=== PATIENT | female | born 1965 | race African-American/Black ===

== ENCOUNTER 2021-09-18 15:55 | Inpatient (IN) | payer OTHER, SELFPAY ==
--- NOTE | 2021-09-18 17:04 | P.EN_ITS ---
Event Note Date of Service: 09/18/21 Event Note: Pt transferred from [facility]. Reports she has a bladder prolapse, no UTI sx and uses antibiotics often for sx mgt. Per [facility], [facility] [address] [phone], last antibiotics Rx 07/23/22, October 2020 and in [facility] ER-Keflex 09/10-. As a result none were re- written at this time. Pt tells team she will need a consult for the prolapse. Nakul held as pt reports an increase in GI distress when using these. Per [facility] current regime includes...clonidine 0.1 mg tid, trazodone 50 mg hs prn, Chlorthalidone 12.5 mg a.m. Omeprazole 20 mg daily, Lorazepam 0.5 mg tid (7 day supply 07/23), Abilify 10 mg daily, Miralax qd prn.
--- NOTE | 2021-09-18 17:04 | PM.EVENT ---
Event Note Date of Service: 09/18/21 Event Note: Pt transferred from [facility]. Reports she has a bladder prolapse, no UTI sx and uses antibiotics often for sx mgt. Per [facility], [facility] [address] [phone], last antibiotics Rx 07/23/22, October 2020 and in [facility] ER-Keflex 09/10-. As a result none were re-written at this time. Pt tells team she will need a consult for the prolapse. Nakul held as pt reports an increase in GI distress when using these. Per [facility] current regime includes...clonidine 0.1 mg tid, trazodone 50 mg hs prn, Chlorthalidone 12.5 mg a.m. Omeprazole 20 mg daily, Lorazepam 0.5 mg tid (7 day supply 07/23), Abilify 10 mg daily, Miralax qd prn.
[2021-09-18] MEDS: polyethylene glycoL 3350 17 GM POWD.PACK PO (18:06)
[2021-09-18 19:30] VITALS: BP 143/68; PULSE 85
[2021-09-18] MEDS: Baclofen 10 MG TABLET PO (19:52)
[2021-09-18] MEDS: Gabapentin 300 MG CAPSULE PO (19:52)
[2021-09-18] MEDS: cloNIDine HCL 0.1 MG TABLET PO (19:52)
[2021-09-18] MEDS: Acetaminophen 325 MG TABLET 650 MG PO (19:55)
[2021-09-18] MEDS: LORazepam 0.5 MG TABLET PO (19:56)
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
[2021-09-18] MEDS: Nicotine Polacrilex 2 MG GUM 4 MG BUCCAL (21:37)
[2021-09-19] MEDS: traZODone HCL 50 MG TABLET PO ×2 (01:12→21:54)
[2021-09-19] MEDS: hydrOXYzine HCL 25 MG TABLET PO (04:42)
[2021-09-19] MEDS: Ondansetron ODT 4 MG TAB.RAPDIS TRANSLINGU (04:58)
[2021-09-19] MEDS: Acetaminophen 325 MG TABLET 650 MG PO (05:24)
[2021-09-19 06:00] VITALS: BP 109/78; PULSE 78; TEMP 36.9; O2SAT 99
[2021-09-19] MEDS: hydroCHLOROthiazide 12.5 MG TABLET PO (08:48)
[2021-09-19] MEDS: Baclofen 10 MG TABLET PO ×2 (08:48→20:32)
[2021-09-19] MEDS: cloNIDine HCL 0.1 MG TABLET PO ×3 (08:48→20:33)
[2021-09-19] MEDS: ARIPiprazole 10 MG TABLET PO (08:49)
[2021-09-19] MEDS: Gabapentin 300 MG CAPSULE PO ×3 (08:49→20:32)
[2021-09-19] MEDS: Magnesium Hydrox/Alum Hydrox 30 ML ORAL.SUSP PO ×2 (08:53→16:07)
[2021-09-19] MEDS: Nicotine 21 MG PATCH.TD24 TRANSDERMA (09:13)
[2021-09-19] MEDS: Nicotine Polacrilex 2 MG GUM 4 MG BUCCAL ×4 (09:33→23:26)
[2021-09-19] MEDS: Omeprazole 20 MG CAPSULE.DR PO ×2 (09:33→15:40)
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
[2021-09-19] MEDS: LORazepam 0.5 MG TABLET PO ×2 (12:20→21:54)
--- NOTE | 2021-09-19 14:23 | PC.NURSE ---
pt came to the nurses station c/o feeling like she was having a stroke. no facial droop but lower jaw did appear off center. she appeared anxious. bp taken 115/66 86 pulse and 100 % room air. as i spoke with pt her speech was clear. seemed to relax and did accept ativan prn. pt reported no pain and relaxed as 1:1 progressed and she stated she felt better. did not feel the same way. elaine aware.
--- NOTE | 2021-09-19 14:37 | HO.ADDICT_ITS ---
History of Present Illness Date of Service: 09/19/2021 Chief Complaint: Unspec Depressive D/O Opioid Use D/O Stimulant Use Reason for Consult: opioid use disorder, requesting suboxone Requesting physician: Mirta Carrera Discussed with referring provider: Yes Sources of Information: patient interviewed and chart reviewed HPI Narrative: Patient is a 55 year old female currently psychiatrically admitted with worsening depression and suicidal ideation. Long history of opioid and cocaine use. Patient had been at [facility] ED awaiting admission since 09/10, and came to [facility] yesterday. Notes and labs from [facility] reviewed. UDS +opiates and cocaine Patient seen in room 508. Awake, alert, pleasant and engaged in interview. Patient reporting withdrawal sx including, body aches, loose stools, nausea, chills. She reports she was using approx 2 bundles of heroin QD IN. Last use was about 10 days ago. She reports that she has only been on MOUD when at [facility] and has not continued once discharged She reports history of 2 overdoses requiring narcan denies any family history of addiction Reports her only periods in recovery have been when she has been hospitalized or incarcerated Review of Systems Constitutional: Reports as per HPI Diagnostics Vital Signs (24Hr): Vital Signs - 24 hr 09/18/21 19:30 09/19/21 06:00 Temperature 98.4 F Pulse Rate 85 78 Blood Pressure 143/68 H 109/78 Pulse Oximetry 99 Mental Status Exam Mental Status Exam Patient Appearance: Appropriate Level of Consciousness: Awake and Appropriate Patient Behavior: Appropriate and Restless Mood Description: Calm and Appropriate Affect Description: Appropriate Thought Process: Goal Oriented Thought Content: positive for Goal Oriented Judgement: Fair Medications Medications Current Medications Acetaminophen (Acetaminophen 325 Mg Tablet) 650 mg PO Q6H PRN PRN Reason: Headache/Pain Mild Scale (1-3) Last Admin: 09/19/21 05:24 Dose: 650 mg Documented by: Al Hydroxide/Mg Hydroxide (Magnesium Hydrox/Alum Hydrox 30 Ml Oral.Susp) 30 ml PO Q6H PRN PRN Reason: Heartburn/Nausea Last Admin: 09/19/21 08:53 Dose: 30 ml Documented by: Aripiprazole (Aripiprazole 10 Mg Tablet) 10 mg PO DAILY [facility] Last Admin: 09/19/21 08:49 Dose: 10 mg Documented by: Baclofen (Baclofen 10 Mg Tablet) 10 mg PO BID [facility] Last Admin: 09/19/21 08:48 Dose: 10 mg Documented by: Buprenorphine HCl (Buprenorphine Hcl 2 Mg Tab.Subl) 2 mg SUBLINGUAL Q2H PRN PRN Reason: Opiate Withdrawal Clonidine HCl (Clonidine Hcl 0.1 Mg Tablet) 0.1 mg PO TID [facility]; Protocol Last Admin: 09/19/21 14:20 Dose: 0.1 mg Documented by: Gabapentin (Gabapentin 300 Mg Capsule) 300 mg PO TID [facility] Last Admin: 09/19/21 14:20 Dose: 300 mg Documented by: Hydrochlorothiazide (Hydrochlorothiazide 12.5 Mg Tablet) 12.5 mg PO DAILY [facility] Last Admin: 09/19/21 08:48 Dose: 12.5 mg Documented by: Hydrocortisone (Hydrocortisone 1 % Cream 28.35 Gm Tube) 1 appl TOPICAL DAILY PRN; Protocol PRN Reason: dermatoses Hydroxyzine HCl (Hydroxyzine Hcl 25 Mg Tablet) 25 mg PO BEDTIME PRN PRN Reason: Anxiety Last Admin: 09/19/21 04:42 Dose: 25 mg Documented by: Lorazepam (Lorazepam 0.5 Mg Tablet) 0.5 mg PO Q8H PRN PRN Reason: Anxiety Last Admin: 09/19/21 12:20 Dose: 0.5 mg Documented by: Magnesium Hydroxide (Milk Of Magnesia 30 Ml Oral.Susp) 30 ml PO DAILY PRN PRN Reason: Constipation Mupirocin (Mupirocin 2 % Oint 22 Gm Tube) 1 appl TOPICAL BID [facility]; Protocol Last Admin: 09/19/21 08:49 Dose: Not Given Documented by: Nicotine (Nicotine 21 Mg Patch.Td24) 21 mg TRANSDERMA DAILY [facility] Last Admin: 09/19/21 09:13 Dose: 21 mg Documented by: Nicotine Polacrilex (Nicotine Polacrilex 2 Mg Gum) 4 mg BUCCAL Q1H PRN PRN Reason: Nicotine Cravings Last Admin: 09/19/21 09:33 Dose: 4 mg Documented by: Omeprazole (Omeprazole 20 Mg Capsule.Dr) 20 mg PO BID@0630,1630 [facility] Ondansetron HCl (Ondansetron Odt 4 Mg Tab.Rapdis) 4 mg TRANSLINGU Q6H PRN PRN Reason: Vomiting Last Admin: 09/19/21 04:58 Dose: 4 mg Documented by: Polyethylene Glycol (Polyethylene Glycol 3350 17 Gm Powd.Pack) 17 gm PO DAILY PRN PRN Reason: Constipation Last Admin: 09/18/21 18:06 Dose: 17 gm Documented by: Trazodone HCl (Trazodone Hcl 50 Mg Tablet) 50 mg PO BEDTIME PRN PRN Reason: Insomnia Last Admin: 09/19/21 01:12 Dose: 50 mg Documented by: Allergies Allergies Allergy/AdvReac Type Severity Reaction Status Date / Time No Known Allergies Allergy Verified 09/18/21 16:27 Assessment & Plan Assessment & Plan (1) Opioid use disorder: Status: Acute Code(s): F11.90 - Opioid use, unspecified, uncomplicated Assessment and Plan: * will start buprenorphine mono product per patient request --2mg Q2 hours for withdrawal max of 4 doses (total of 8mg) * daily dosing for tomorrow depends on today's soing * please tigher this aligner typewriter with any questions over the weekend I spent _35 minutes with the patient and/or on the patient floor today, greater than?50% of which was spent counseling/coordinating care. PMFSH Social History Social History Household Members: None Housing: Homeless Do you presently have visiting nurse or other home services: No Patient Tobacco Use Status: Current everyday Tobacco user Tobacco use type: Cigarette Cigarette Packs Per Day: 2 Cigarettes Per Day: 40.0 Years Smoked: 10+ Smoked in Last 30 Days: Yes Patient Interested in Nicotine Replacement: Yes Patient Given Instructions on How to Stop Smoking: Yes Date Education Initiated: 09/18/21 Second Hand Smoke Exposure: Yes Use of substances other than those prescribed or required for medical reasons: No Substance Use Type: Crack/Cocaine and Opiates Substance Use Frequency: Socially Last Used Substance: Days (ago) Currently Displaying Signs/Symptoms of Drug Intoxication Withdrawal: Yes Any prior treatment program specific to substance use: No Have you been hit, kicked, punched, or otherwise hurt by someone within the past year? If so, by whom?: No Do you feel safe in your current relationship?: No Current Relationship Is there a partner from a previous relationship who is making you feel unsafe now?: No Are you made to feel afraid or neglected: No Advance Directives: No Advance Directives Information Provided: No Do you have thoughts of harming others: None Do you have a plan to hurt others: No Plan Recently lost weight without trying: No How much weight loss: Not applicable Eating poorly because of decreased appetite: No Nutrition screen score: 0 Nutrition Risks: No Nutritional Risk Patient : No : No Poor oral hygiene: No service: No Sexual orientation: Did not discuss
--- NOTE | 2021-09-19 18:41 | P.CNHOSGPS_ITS ---
History of Present Illness Data of Consult Service Date: 09/19/21 Requesting physician: Mirta Carrera Primary Care Provider: Unknown Physician HPI Reason for consult: ? bladder prolapse 55-year-old female poor historian , history taken from [facility] documents, patient and patient staff- Patient was sent from [facility] because of suicidal ideation. Patient has history of polysubstance abuse she still uses cocaine. Two packs cigarette smoking day history. She also has history of hysterectomy in 2007 after that she also has urethral diverticulum and cystocele. she says that she feels like her bladder prolapse then try to pressure the urine, denies any burning or pain or nausea vomiting or fever. denies any chest pain or shortness of breath or cough or phlegm or new weakness or numbness. Past medical history: History of hysterectomy, GERD,anemia, history of substance abuse, depression, hypertension, EtOH abuse, vesicovaginal fistula, cystocele, history of left lower extremity swelling. chart review also shows that she probably has opioid withdrawal on Suboxone currently. currently does not seem to be in significant withdrawals. Review of Systems Verdana 4l Review of Systems: Verdana 4d as above. Verdana 4d Yes Verdana 4d all other systems are reviewed and are negative Verdana 4l ENT: Verdana 4d Reports Normal hearing present Verdana 4l Neurologic: Verdana 4d Reports Normal hearing present [facility] Pertinent family history: Denies any history of hypertension, GERD in family. Social History Household Members: None Housing: Homeless Do you presently have visiting nurse or other home services: No Patient Tobacco Use Status: Current everyday Tobacco user Tobacco use type: Cigarette Cigarette Packs Per Day: 2 Cigarettes Per Day: 40.0 Years Smoked: 10+ Smoked in Last 30 Days: Yes Patient Interested in Nicotine Replacement: Yes Patient Given Instructions on How to Stop Smoking: Yes Date Education Initiated: 09/18/21 Second Hand Smoke Exposure: Yes Use of substances other than those prescribed or required for medical reasons: No Substance Use Type: Crack/Cocaine and Opiates Substance Use Frequency: Socially Last Used Substance: Days (ago) Currently Displaying Signs/Symptoms of Drug Intoxication Withdrawal: No Any prior treatment program specific to substance use: No Have you been hit, kicked, punched, or otherwise hurt by someone within the past year? If so, by whom?: No Do you feel safe in your current relationship?: No Current Relationship Is there a partner from a previous relationship who is making you feel unsafe now?: No Are you made to feel afraid or neglected: No Advance Directives: No Advance Directives Information Provided: No Do you have thoughts of harming others: None Do you have a plan to hurt others: No Plan Recently lost weight without trying: No How much weight loss: Not applicable Eating poorly because of decreased appetite: No Nutrition screen score: 0 Nutrition Risks: No Nutritional Risk Patient : No : No Poor oral hygiene: No service: No Sexual orientation: Did not discuss Meds Allergies Allergy/AdvReac Type Severity Reaction Status Date / Time No Known Allergies Allergy Verified 09/18/21 16:27 Active Medications: Current Medications Acetaminophen (Acetaminophen 325 Mg Tablet) 650 mg PO Q6H PRN PRN Reason: Headache/Pain Mild Scale (1-3) Last Admin: 09/19/21 05:24 Dose: 650 mg Documented by: Al Hydroxide/Mg Hydroxide (Magnesium Hydrox/Alum Hydrox 30 Ml Oral.Susp) 30 ml PO Q6H PRN PRN Reason: Heartburn/Nausea Last Admin: 09/19/21 16:07 Dose: 30 ml Documented by: Aripiprazole (Aripiprazole 10 Mg Tablet) 10 mg PO DAILY [facility] Last Admin: 09/19/21 08:49 Dose: 10 mg Documented by: Baclofen (Baclofen 10 Mg Tablet) 10 mg PO BID [facility] Last Admin: 09/19/21 08:48 Dose: 10 mg Documented by: Buprenorphine HCl (Buprenorphine Hcl 2 Mg Tab.Subl) 2 mg SUBLINGUAL Q2H PRN PRN Reason: Opiate Withdrawal Clonidine HCl (Clonidine Hcl 0.1 Mg Tablet) 0.1 mg PO TID [facility]; Protocol Last Admin: 09/19/21 14:20 Dose: 0.1 mg Documented by: Gabapentin (Gabapentin 300 Mg Capsule) 300 mg PO TID [facility] Last Admin: 09/19/21 14:20 Dose: 300 mg Documented by: Hydrochlorothiazide (Hydrochlorothiazide 12.5 Mg Tablet) 12.5 mg PO DAILY [facility] Last Admin: 09/19/21 08:48 Dose: 12.5 mg Documented by: Hydrocortisone (Hydrocortisone 1 % Cream 28.35 Gm Tube) 1 appl TOPICAL DAILY PRN; Protocol PRN Reason: dermatoses Hydroxyzine HCl (Hydroxyzine Hcl 25 Mg Tablet) 25 mg PO BEDTIME PRN PRN Reason: Anxiety Last Admin: 09/19/21 04:42 Dose: 25 mg Documented by: Lorazepam (Lorazepam 0.5 Mg Tablet) 0.5 mg PO Q8H PRN PRN Reason: Anxiety Last Admin: 09/19/21 12:20 Dose: 0.5 mg Documented by: Magnesium Hydroxide (Milk Of Magnesia 30 Ml Oral.Susp) 30 ml PO DAILY PRN PRN Reason: Constipation Mupirocin (Mupirocin 2 % Oint 22 Gm Tube) 1 appl TOPICAL BID [facility]; Protocol Last Admin: 09/19/21 08:49 Dose: Not Given Documented by: Nicotine (Nicotine 21 Mg Patch.Td24) 21 mg TRANSDERMA DAILY [facility] Last Admin: 09/19/21 09:13 Dose: 21 mg Documented by: Nicotine Polacrilex (Nicotine Polacrilex 2 Mg Gum) 4 mg BUCCAL Q1H PRN PRN Reason: Nicotine Cravings Last Admin: 09/19/21 16:07 Dose: 4 mg Documented by: Omeprazole (Omeprazole 20 Mg Capsule.Dr) 20 mg PO BID@0630,1630 [facility] Last Admin: 09/19/21 15:40 Dose: 20 mg Documented by: Ondansetron HCl (Ondansetron Odt 4 Mg Tab.Rapdis) 4 mg TRANSLINGU Q6H PRN PRN Reason: Vomiting Last Admin: 09/19/21 04:58 Dose: 4 mg Documented by: Polyethylene Glycol (Polyethylene Glycol 3350 17 Gm Powd.Pack) 17 gm PO DAILY PRN PRN Reason: Constipation Last Admin: 09/18/21 18:06 Dose: 17 gm Documented by: Trazodone HCl (Trazodone Hcl 50 Mg Tablet) 50 mg PO BEDTIME PRN PRN Reason: Insomnia Last Admin: 09/19/21 01:12 Dose: 50 mg Documented by: Home Medications Medication Instructions Recorded Confirmed Last Taken Type amoxicillin 500 1 cap PO BID 09/18/21 09/18/21 Unknown History mg capsule aripiprazole 10 1 tab PO DAILY 09/18/21 09/18/21 Unknown History mg tablet baclofen 10 mg 1 tab PO BID 09/18/21 09/18/21 Unknown History tablet chlorthalidone 25 0.5 tab PO QAM 09/18/21 09/18/21 Unknown History mg tablet clonidine HCl 0.1 1 tab PO TID 09/18/21 09/18/21 Unknown History mg tablet gabapentin 300 mg 1 cap PO TID 09/18/21 09/18/21 Unknown History capsule gabapentin 300 mg 1 cap PO TID 09/18/21 09/18/21 Unknown History capsule hydrocortisone appl TOPICAL 09/18/21 09/18/21 Unknown History 2.5 % topical cream lorazepam 0.5 mg 1 tab PO TID PRN 09/18/21 09/18/21 Unknown History tablet lorazepam 0.5 mg 1 tab PO TID PRN 09/18/21 09/18/21 Unknown History tablet methylprednisolon tab PO 09/18/21 09/18/21 Unknown History e 4 mg tablets in a dose pack methylprednisolon tab PO 09/18/21 09/18/21 Unknown History e 4 mg tablets in a dose pack mupirocin 2 % 1 applic TOPICAL 09/18/21 09/18/21 Unknown History topical ointment BID-TID ondansetron HCl 4 1 tab PO Q8H PRN 09/18/21 09/18/21 Unknown History mg tablet ondansetron HCl 4 1 tab PO Q8H PRN 09/18/21 09/18/21 Unknown History mg tablet pantoprazole 40 1 tab PO DAILY 09/18/21 09/18/21 Unknown History mg tablet,delayed release polyethylene g PO 09/18/21 09/18/21 Unknown History glycol 3350 17 gram/dose oral powder (Gavilax) sulfamethoxazole 1 tab PO BID 09/18/21 09/18/21 Unknown History 800 mg-trimethoprim 160 mg tablet sulfamethoxazole 1 tab PO BID 09/18/21 09/18/21 Unknown History 800 mg-trimethoprim 160 mg tablet trazodone 50 mg 1 tab PO BEDTIME 09/18/21 09/18/21 Unknown History tablet trazodone 50 mg 1 tab PO BEDTIME 09/18/21 09/18/21 Unknown History tablet trazodone 50 mg 1 tab PO BEDTIME 09/18/21 09/18/21 Unknown History tablet trazodone 50 mg 1 tab PO BEDTIME 09/18/21 09/18/21 Unknown History tablet trazodone 50 mg 1 tab PO BEDTIME 09/18/21 09/18/21 Unknown History tablet trazodone 50 mg 1 tab PO BEDTIME 09/18/21 09/18/21 Unknown History tablet trazodone 50 mg 1 tab PO BEDTIME 09/18/21 09/18/21 Unknown History tablet trazodone 50 mg 1 tab PO BEDTIME 09/18/21 09/18/21 Unknown History tablet Assessment and Plan (1) Opioid use disorder: Status: Acute (2) HTN (hypertension): Status: Acute Plan 55-year-old female with multiple comorbidities including hypertension- admitted to [facility] for suicidal ideation medical consult was called due to new transfer, and evaluation bladder prolapse . patient was seen between between 4-4:30 pm in afternoon. 1. hypertension :continue hydrochlorothiazide 2. history of hysterectomy, question of bladder prolapse externally does not show any sign of prolapse does not seem to be DIS comfortable either consider clinical provider trainer consult. 3. anemia: [facility] labs recently hemoglobin is 12.2 seems stable. 4. depression/SI: continue medications and management as per psych. Please check CBC BMP just for baseline. 5. history of cocaine and substance abuse: seen by records management specialist seems like patient withdrawing and is on Suboxone currently seems asymptomatic. Continue to monitor. Thank you for letting at participate in the patient care ,please call us for any questions. Physical Exam Vital Signs: Last Vital Signs Temp 98.4 F 09/19/21 06:00 Pulse 78 09/19/21 06:00 BP 109/78 09/19/21 06:00 Pulse Ox 99 09/19/21 06:00 Physical exam: Appearance: Alert.? Oriented X3.? not in distress.? Eyes: Pupils equal, round and reactive to light.? Sclera nonicteric.? ENT: Pharynx normal.? Moist mucous membranes. cvs: rrr, [id number] , no murmur res: clear to auscultation ,no rhonchii or wheezing abd: no rebound or guarding ,nt, bs present. : Exam was done with staff present- externally does not show any protrusion o f bladder or any sign of any erythema or discharge. ext pulses present , no cyanosis ,Gait well balanced well coordinated. neuro: axo3 , nonfocal. Eyes Pupils: Equal, round and reactive pupils present Neuro Cranial nerves: Yes CN's II-XII intact bilaterally, Yes Facial sensation intact/muscles of mastication intact, Yes Intact sense of smell present, Yes Equal, round and reactive pupils present, Yes Normal accommodation reflex present, Yes Bilaterally intact EOM present, Yes Nystagmus not present, Yes Normal facial strength present, Yes Midline tongue present, Yes Normal gag reflex present, Yes Symmetric palate elevation present, Yes Normal hearing present, Yes Ability to bilaterally rotate head present and Yes Ability to bilaterally elevate shoulders present
[2021-09-19] MEDS: Buprenorphine HCL 2 MG TAB.SUBL SUBLINGUAL ×2 (19:02→21:54)
[2021-09-19 19:25] VITALS: BP 121/59; PULSE 79; RESP 8; TEMP 36.6; O2SAT 100
[2021-09-19 19:51] LABS: MANUAL DIFF FLAG NO
[2021-09-19 19:57] LABS: Basophils Percent Auto 0.8 % (0-2); Eosinophils Absolute Auto 0.1 X10*3/uL (0.0-0.4); Eosinophils Percent Auto 2.2 % (0-4); Hemoglobin 12.2 g/dl (12.0-16.0); Imm Gran Abs Auto 0.02 X10*3/uL (0.00-0.03); Imm Gran Pct Auto 0.4 % (0.0-0.4); Lymphocytes Absolute Auto 2.2 X10*3/uL (1.2-4.9); Lymphocytes Percent Auto 44.1 % (20-40); Mean Corpuscular Hemoglobin 29.7 pg (27.0-33.0); Mean Platelet Volume 10.1 fL (9.4-12.3); Monocytes Absolute Auto 0.3 X10*3/uL (0.1-1.2); Monocytes Percent Auto 6.8 % (2-11); Neutrophils Absolute Auto 2.3 x10*3/uL (2.0-8.3); Neutrophils Percent Auto 45.7 % (45-73); Platelet Count 329 X10*3/uL (160-400); Red Blood Count 4.11 X10*6/uL (4.20-5.50); Red Cell Distribution Width 12.6 % (11.0-16.0)
[2021-09-19 20:15] LABS: Anion Gap 14 (12-20); Blood Urea Nitrogen 14 mg/dL (9-16); Calcium 10.1 mg/dL (8.4-10.2); Carbon Dioxide 36 mmol/L (22-29); Chloride 90 mmol/L (96-108); Estimated Glomerular Filt Rate > 60; Glucose Random 92 mg/dL (60-115); Potassium 4.6 mmol/L (3.3-5.1); Sodium 135 mmol/L (135-145)
[2021-09-19] MEDS: Hydrocortisone 1 % Cream 28.35 GM TUBE 1 APPL TOPICAL (21:50)
[2021-09-19] MEDS: Mupirocin 2 % Oint 22 GM TUBE 1 APPL TOPICAL (21:56)
[2021-09-20] MEDS: LORazepam 0.5 MG TABLET PO (03:34)
[2021-09-20] MEDS: Buprenorphine HCL 2 MG TAB.SUBL SUBLINGUAL ×2 (03:35→09:28)
[2021-09-20] MEDS: Nicotine Polacrilex 2 MG GUM 4 MG BUCCAL ×3 (04:11→19:31)
[2021-09-20 06:00] VITALS: BP 111/64; PULSE 71; RESP 18; TEMP 35.8; O2SAT 98
[2021-09-20] MEDS: Omeprazole 20 MG CAPSULE.DR PO ×2 (06:22→16:23)
[2021-09-20 07:49] LABS: Estimated Average Glucose 120 mg/dL; Hemoglobin A1c % 5.8 %
[2021-09-20 08:08] LABS: Cholesterol 155 mg/dL; HDL Cholesterol 52 mg/dL; LDL Cholesterol Calculated 90 mg/dl; Triglycerides 65 mg/dL
[2021-09-20 08:29] LABS: Thyroid Stimulating Hormone 2.73 uIU/mL (0.32-4.0)
[2021-09-20 08:45] VITALS: BP 160/71; PULSE 84
[2021-09-20] MEDS: Gabapentin 300 MG CAPSULE PO ×3 (09:05→21:22)
[2021-09-20] MEDS: ARIPiprazole 10 MG TABLET PO (09:05)
[2021-09-20] MEDS: Baclofen 10 MG TABLET PO ×2 (09:05→21:22)
[2021-09-20] MEDS: hydroCHLOROthiazide 12.5 MG TABLET PO (09:05)
[2021-09-20] MEDS: cloNIDine HCL 0.1 MG TABLET PO ×3 (09:05→21:22)
[2021-09-20] MEDS: Mupirocin 2 % Oint 22 GM TUBE 1 APPL TOPICAL (09:07)
[2021-09-20] MEDS: Nicotine 21 MG PATCH.TD24 TRANSDERMA (09:15)
--- NOTE | 2021-09-20 11:52 | MHC.RECOVSUP ---
Recovery Support note: This writer editor met with patient to discuss buprenorphine dosing and withdrawal symptoms. Patient was attending group when this writer editor entered the unit. Patient reports that the buprenorphine has been helpful. Patient reports previously experiencing withdrawal symptoms including nausea and body aches however patient reports that after she receives the medication, she does not have any withdrawal symptoms. Discussed case with Char Rodriguez NP.
[2021-09-20 18:00] VITALS: BP 155/65; PULSE 89; RESP 16; TEMP 36.6
[2021-09-20] MEDS: Buprenorphine/Naloxone 4/1 mg FILM 1 FILM SUBLINGUAL (18:33)
[2021-09-20] MEDS: Acetaminophen 325 MG TABLET 650 MG PO (19:31)
--- NOTE | 2021-09-20 19:55 | P.PNPSI_ITS ---
Subjective Subjective Date of Service: 09/20/21 Reason For Visit: Unspec Depressive D/O Opioid Use D/O Stimulant Use Interim History: 55 yo female, with a reported history of schizoaffective disorder, bipolar type and PTSD, seen in transfer from [facility]. Pt reports SI with plans to overdose, get hit by a vehicle or jump [place] [address] [place] in [place], [place]. Pt reports on 07/04 her apartment was taken by the court and she has been homeless. As a result she reports relapse on heroin, crack, daily use and feeling increased depression, hopelessness. Today she reports her knee is swollen and hurts. She has chronic knee pain and swelling and uses a brace. She says no one can bring it and also I am homeless and I don't know where it is now . Mental Status Exam Mental Status Exam Narrative: Mental Status Exam Patient Appearance: desheveled Patient Orientation: Person, Place, Time and Situation Level of Consciousness: Alert Patient Behavior: Talkative, irritable, easily frustrated Mood Description: Depressed Affect Description: Flat Patient Cognition Impaired: No Ability to Follow Directions: Good Speech Pattern: Spontaneous Speech Memory Description: Episodic Impaired Hallucinations: Auditory Delusions: Paranoid Ideation Perceptual Disturbances: Depersonalization and Derealization Thought Process: Rumination Thought Content: positive for Suicidal Ideation Depressive Symptoms: Increased Anxiety, Insomnia, Difficulty Sleeping, Changes in Appetite, Feelings of Worthlessness, Hopelessness, Unhappiness, Thoughts of /Suicide and Low Self Esteem Judgement: Fair Level of Consciousness: Alert Patient Behavior: Talkative, Passive and Good Eye Contact Mood Description: Depressed Affect Description: Flat Patient Cognition Impaired: No Ability to Follow Directions: Good Speech Pattern: Spontaneous Speech Memory Description: Episodic Impaired Diagnostics Vital Signs (24Hr): Vital Signs - 24 hr 09/20/21 06:00 09/20/21 08:45 Temperature 96.5 F L Pulse Rate 71 84 Respiratory Rate 18 Blood Pressure 111/64 160/71 H Pulse Oximetry 98 Labs Results: 09/19/21 19:28 09/19/21 19:28 Labs: Laboratory Results - last 48 hr 09/19/21 09/19/21 09/20/21 19:28 19:28 07:22 WBC 5.0 RBC 4.11 L Hgb 12.2 Hct 37.0 MCV 90.0 MCH 29.7 MCHC 33.0 RDW 12.6 Plt Count 329 MPV 10.1 Immature Gran % (Auto) 0.4 Neut % (Auto) 45.7 Lymph % (Auto) 44.1 H Clay % (Auto) 6.8 Eos % (Auto) 2.2 Baso % (Auto) 0.8 Lymph # (Auto) 2.2 Clay # (Auto) 0.3 Eos # (Auto) 0.1 Baso # (Auto) 0.0 Abs Immat Gran (auto) 0.02 Absolute Neuts (auto) 2.3 Absolute Nucleated RBC 0.000 Nucleated RBC % (auto) 0.0 Sodium 135 Potassium 4.6 Chloride 90 L Carbon Dioxide 36 H Anion Gap 14 BUN 14 Creatinine 0.85 Estim Creat Clear Calc TNP Estimated GFR > 60 Random Glucose 92 Estimat Average Glucose 120 Hemoglobin A1c % 5.8 Calcium 10.1 Triglycerides Cholesterol LDL Cholesterol, Calc HDL Cholesterol TSH 09/20/21 07:22 WBC RBC Hgb Hct MCV MCH MCHC RDW Plt Count MPV Immature Gran % (Auto) Neut % (Auto) Lymph % (Auto) Clay % (Auto) Eos % (Auto) Baso % (Auto) Lymph # (Auto) Clay # (Auto) Eos # (Auto) Baso # (Auto) Abs Immat Gran (auto) Absolute Neuts (auto) Absolute Nucleated RBC Nucleated RBC % (auto) Sodium Potassium Chloride Carbon Dioxide Anion Gap BUN Creatinine Estim Creat Clear Calc Estimated GFR Random Glucose Estimat Average Glucose Hemoglobin A1c % Calcium Triglycerides 65 Cholesterol 155 LDL Cholesterol, Calc 90 HDL Cholesterol 52 TSH 2.73 Medications Medications Current Medications Acetaminophen (Acetaminophen 325 Mg Tablet) 650 mg PO Q6H PRN PRN Reason: Headache/Pain Mild Scale (1-3) Last Admin: 09/20/21 19:31 Dose: 650 mg Documented by: Al Hydroxide/Mg Hydroxide (Magnesium Hydrox/Alum Hydrox 30 Ml Oral.Susp) 30 ml PO Q6H PRN PRN Reason: Heartburn/Nausea Last Admin: 09/19/21 16:07 Dose: 30 ml Documented by: Aripiprazole (Aripiprazole 10 Mg Tablet) 10 mg PO DAILY [facility] Last Admin: 09/20/21 09:05 Dose: 10 mg Documented by: Baclofen (Baclofen 10 Mg Tablet) 10 mg PO BID [facility] Last Admin: 09/20/21 09:05 Dose: 10 mg Documented by: Buprenorphine/Naloxone (Buprenorphine/Naloxone 4/1 Mg Film) 1 film SUBLINGUAL BID@0800,1800 [facility] Last Admin: 09/20/21 18:33 Dose: 1 film Documented by: Clonidine HCl (Clonidine Hcl 0.1 Mg Tablet) 0.1 mg PO TID [facility]; Protocol Last Admin: 09/20/21 15:16 Dose: 0.1 mg Documented by: Gabapentin (Gabapentin 300 Mg Capsule) 300 mg PO TID [facility] Last Admin: 09/20/21 15:16 Dose: 300 mg Documented by: Hydrochlorothiazide (Hydrochlorothiazide 12.5 Mg Tablet) 12.5 mg PO DAILY [facility] Last Admin: 09/20/21 09:05 Dose: 12.5 mg Documented by: Hydrocortisone (Hydrocortisone 1 % Cream 28.35 Gm Tube) 1 appl TOPICAL DAILY [facility]; Protocol PRN Reason: dermatoses Last Admin: 09/19/21 21:50 Dose: 1 appl Documented by: Hydroxyzine HCl (Hydroxyzine Hcl 25 Mg Tablet) 25 mg PO BEDTIME PRN PRN Reason: Anxiety Last Admin: 09/19/21 04:42 Dose: 25 mg Documented by: Lorazepam (Lorazepam 0.5 Mg Tablet) 0.5 mg PO Q8H PRN PRN Reason: Anxiety Last Admin: 09/20/21 03:34 Dose: 0.5 mg Documented by: Magnesium Hydroxide (Milk Of Magnesia 30 Ml Oral.Susp) 30 ml PO DAILY PRN PRN Reason: Constipation Mupirocin (Mupirocin 2 % Oint 22 Gm Tube) 1 appl TOPICAL BID [facility]; Protocol Last Admin: 09/20/21 09:07 Dose: 1 appl Documented by: Nicotine (Nicotine 21 Mg Patch.Td24) 21 mg TRANSDERMA DAILY [facility] Last Admin: 09/20/21 09:15 Dose: 21 mg Documented by: Nicotine Polacrilex (Nicotine Polacrilex 2 Mg Gum) 4 mg BUCCAL Q1H PRN PRN Reason: Nicotine Cravings Last Admin: 09/20/21 19:31 Dose: 4 mg Documented by: Omeprazole (Omeprazole 20 Mg Capsule.) 20 mg PO BID@0630,1630 [facility] Last Admin: 09/20/21 16:23 Dose: 20 mg Documented by: Ondansetron HCl (Ondansetron Odt 4 Mg Tab.Rapdis) 4 mg TRANSLINGU Q6H PRN PRN Reason: Vomiting Last Admin: 09/19/21 04:58 Dose: 4 mg Documented by: Polyethylene Glycol (Polyethylene Glycol 3350 17 Gm Powd.Pack) 17 gm PO DAILY PRN PRN Reason: Constipation Last Admin: 09/18/21 18:06 Dose: 17 gm Documented by: Trazodone HCl (Trazodone Hcl 50 Mg Tablet) 50 mg PO BEDTIME PRN PRN Reason: Insomnia Last Admin: 09/19/21 21:54 Dose: 50 mg Documented by: Allergies Allergies Allergy/AdvReac Type Severity Reaction Status Date / Time No Known Allergies Allergy Verified 09/18/21 16:27 Assessment & Plan Assessment & Plan (1) Schizoaffective disorder: Status: Acute Code(s): F25.9 - Schizoaffective disorder, unspecified (2) Opioid use disorder: Status: Acute Code(s): F11.90 - Opioid use, unspecified, uncomplicated Plan 55 yo female, hx of schizoaffective disorder, opiate, cocaine dependence, presents in transfer from [facility] with reports of SI with several plans including OD, getting hit by [place] [address] [place]. Pt reports she had her apartment taken in 2020 and relapsed after that. She requests assistance in starting Suboxone, re-establishing medications and finding some housing support. Plan: Will ask PT to see for knee brace. Ibuprofen PRN. Continue Abilify and Gabapentin. Titrate as required. Addiction consult to begin Suboxone. REQUIREMENTS ANALYST consult-s.w. Dr. Choi's office-pt is instructed to make an appointment upon discharge for ongoing follow up. Medical consult Discharge planning. I spent minutes with the patient and/or on the patient floor today, greater than?50% of which was spent counseling/coordinating care. Reason for contiued inpatient stay Substantial Risk for: harm to self and rapid decompensation
[2021-09-20] MEDS: Ibuprofen 600 MG TABLET PO (20:21)
[2021-09-20] MEDS: Simethicone 80 MG TAB.CHEW PO (21:51)
--- NOTE | 2021-09-20 22:12 | PC.NURSE ---
PT complains of right knee pain 04/01 and reports she has had imaging and was told she needed a knee replacement. Significant non pitting edema observed on patients right knee. call center dispatcher contacted- Ibuprofen 600mg ordered and given with positive effect and PT consult ordered.
[2021-09-21] MEDS: LORazepam 0.5 MG TABLET PO ×3 (00:24→23:45)
[2021-09-21] MEDS: Acetaminophen 325 MG TABLET 650 MG PO (05:26)
[2021-09-21] MEDS: Ibuprofen 600 MG TABLET PO ×2 (05:27→12:58)
[2021-09-21] MEDS: Omeprazole 20 MG CAPSULE.DR PO ×2 (05:28→16:58)
[2021-09-21 06:05] VITALS: BP 121/61; PULSE 78; RESP 17; TEMP 36.1; O2SAT 100
[2021-09-21] MEDS: Nicotine Polacrilex 2 MG GUM 4 MG BUCCAL ×3 (06:55→23:32)
[2021-09-21] MEDS: cloNIDine HCL 0.1 MG TABLET PO ×3 (08:44→20:26)
[2021-09-21] MEDS: hydroCHLOROthiazide 12.5 MG TABLET PO (08:45)
[2021-09-21] MEDS: Baclofen 10 MG TABLET PO ×2 (08:45→20:27)
[2021-09-21] MEDS: ARIPiprazole 10 MG TABLET PO (08:45)
[2021-09-21] MEDS: Nicotine 21 MG PATCH.TD24 TRANSDERMA (08:45)
[2021-09-21] MEDS: Gabapentin 300 MG CAPSULE PO ×3 (08:45→20:26)
[2021-09-21] MEDS: Simethicone 80 MG TAB.CHEW PO (08:45)
[2021-09-21] MEDS: Mupirocin 2 % Oint 22 GM TUBE 1 APPL TOPICAL (12:28)
[2021-09-21] MEDS: Buprenorphine/Naloxone 8/2 mg TAB.SUBL 0.5 TAB SUBLINGUAL ×2 (14:05→19:04)
[2021-09-21] MEDS: traZODone HCL 50 MG TABLET PO (20:26)
[2021-09-21] MEDS: hydrOXYzine HCL 25 MG TABLET PO (22:19)
--- NOTE | 2021-09-21 22:20 | PC.NURSE ---
Pt came to the nurse's station asking staff to heat up her cup of coffee. When we tried to tell her we were unable to reheat patient's food/beverages anymore due to COVID, pt became extremely agitated and began swearing at staff. She then stated I'm going to get a rope and hang myself in the bathroom. You're going to make me kill myself. This RN increased her safety checks to 5 min locked bathroom as a precaution.
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
[2021-09-21] MEDS: OLANZapine 10 MG VIAL IM (23:30)
[2021-09-22 04:13] LABS: Folate 6.6 ng/mL (> or = 4.0); Vitamin B12 877 pg/mL (200-900)
[2021-09-22] MEDS: Omeprazole 20 MG CAPSULE.DR PO (07:37)
[2021-09-22] MEDS: Buprenorphine/Naloxone 8/2 mg TAB.SUBL 0.5 TAB SUBLINGUAL (07:45)
[2021-09-22] MEDS: Nicotine 21 MG PATCH.TD24 TRANSDERMA (09:09)
[2021-09-22] MEDS: Baclofen 10 MG TABLET PO (09:10)
[2021-09-22] MEDS: cloNIDine HCL 0.1 MG TABLET PO (09:10)
[2021-09-22] MEDS: Gabapentin 300 MG CAPSULE PO (09:10)
[2021-09-22] MEDS: ARIPiprazole 10 MG TABLET PO (09:10)
[2021-09-22] MEDS: hydroCHLOROthiazide 12.5 MG TABLET PO (09:10)
[2021-09-22] MEDS: Acetaminophen 325 MG TABLET 650 MG PO (09:35)
[2021-09-22] MEDS: Ibuprofen 600 MG TABLET PO (10:01)
[2021-09-22] MEDS: Mupirocin 2 % Oint 22 GM TUBE 1 APPL TOPICAL (10:02)
[2021-09-22] MEDS: Nicotine Polacrilex 2 MG GUM 4 MG BUCCAL ×2 (10:06→13:16)
[2021-09-22] MEDS: Simethicone 80 MG TAB.CHEW PO (13:15)
[2021-09-22] MEDS: LORazepam 0.5 MG TABLET PO (13:15)
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
== END 2021-09-22 13:53 | disposition home or self-care (01) | DRG 750 ==
PROVIDERS: Psychiatry & Neurology Psychiatry; Admitting Provider Psychiatry & Neurology Psychiatry; Visit Provider Clinical Nurse Specialist Psychiatric/Mental Health, Adult
DX: F25.9 Schizoaffective disorder, unspecified (principal); R45.851 Suicidal ideations; Z59.02 Unsheltered homelessness; D64.9 Anemia, unspecified; F11.20 Opioid dependence, uncomplicated; F43.10 Post-traumatic stress disorder, unspecified; F17.210 Nicotine dependence, cigarettes, uncomplicated; Z71.6 Tobacco abuse counseling; Z79.899 Other long term (current) drug therapy
CPT/HCPCS: 36415; 80048; 80061; 82607; 82746; 83036; 84443; 85025; J0571